=== PATIENT | male | born 1995 | race African-American/Black ===

== ENCOUNTER 2017-09-13 10:46 | Emergency (ER) | payer OTHER ==
[2017-09-13 11:23] VITALS: BP 133/66
--- NOTE | 2017-09-13 11:36 | UC ---
Throat Pain/Nasal Mike HPI - HPI Summary HPI Summary: Throat has felt dry for about one month---patient is concerned about thrush - History of Current Complaint Chief Complaint: UCGeneralIllness Stated Complaint: THROAT COMPLAINT Time Seen by Provider: 09/13/17 11:31 Hx Obtained From: Patient Onset/Duration: Gradual Onset, Lasting Weeks - 4 Severity: Mild Cough: None Associated Signs & Symptoms: Positive: Negative - Allergies/Home Medications Allergies/Adverse Reactions: Allergies Allergy/AdvReac Type Severity Reaction Status Date / Time No Known Allergies Allergy Verified 09/13/17 11:20 Home Medications: Home Medications NK [No Home Medications Reported] 09/13/17 [History Confirmed 09/13/17] PMH/Surg Hx/FS Hx/Imm Hx Previously Healthy: Yes - Surgical History Surgical History: None - Family History Known Family History: Positive: None - Social History Occupation: Student Lives: With Family Alcohol Use: None Substance Use Type: None Smoking Status (MU): Never Smoked Tobacco Review of Systems Constitutional: Negative Skin: Negative Eyes: Negative ENT: Negative, Sore Throat - "dryness" Respiratory: Negative Cardiovascular: Negative Gastrointestinal: Negative Genitourinary: Negative Motor: Negative Neurovascular: Negative Musculoskeletal: Negative Neurological: Negative Psychological: Negative Is Patient Immunocompromised?: No All Other Systems Reviewed And Are Negative: Yes Physical Exam Triage Information Reviewed: Yes Appearance: Well-Appearing, No Pain Distress, Well-Nourished Vital Signs: Initial Vital Signs Temp 98.2 F 09/13/17 11:20 Pulse 59 09/13/17 11:20 Resp 16 09/13/17 11:20 BP 133/66 09/13/17 11:20 Pulse Ox 100 09/13/17 11:20 Vital Signs Reviewed: Yes Eye Exam: Normal Eyes: Positive: Conjunctiva Clear ENT Exam: Normal ENT: Positive: Normal ENT inspection, Hearing grossly normal, Pharynx normal, TMs normal. Negative: Nasal congestion, Nasal drainage, Trismus, Muffled/ hoarse voice Dental Exam: Normal Neck exam: Normal Neck: Positive: Supple, Nontender Respiratory Exam: Normal Respiratory: Positive: Chest non-tender, Lungs clear, Normal breath sounds, No respiratory distress, No accessory muscle use Cardiovascular Exam: Normal Cardiovascular: Positive: RRR, No Murmur, Pulses Normal, Brisk Capillary Refill Musculoskeletal Exam: Normal Musculoskeletal: Positive: Strength Intact, ROM Intact, No Edema Neurological Exam: Normal Neurological: Positive: Alert, Muscle Tone Normal Psychological Exam: Normal Skin Exam: Normal Throat Pain/Nasal Course/Dx - Course Assessment/Plan: try cool mist humidification, saline nasal spary for additional moisture over night follow with [facility] as needed - Differential Dx/Diagnosis Provider Diagnoses: dry nasal and phayngeal mucosa Discharge - Discharge Plan Condition: Stable Disposition: HOME Patient Education Materials: Sodium Chloride (Into the nose), Pharyngitis (ED) Referrals: [facility] [Outside] Additional Instructions: A cool mist humidifier may be helpful with mitigating your symptoms. You can buy these in the pharmacy area of any store
== END 2017-09-13 11:50 | disposition home or self-care (01) ==
LOC: UCCORT 10:46
DX: J02.9 Acute pharyngitis, unspecified (principal)
CPT/HCPCS: 99201; G0463

== ENCOUNTER 2018-08-10 18:08 | Emergency (ER) | payer OTHER ==
[2018-08-10 19:22] VITALS: BP 141/85
[2018-08-10] MEDS ORDERED: Lidocaine 1% MPF* 2 ML VIAL INJ ONE (19:45)
--- NOTE | 2018-08-10 19:47 | UC ---
Skin Complaint HPI - HPI Summary HPI Summary: Patient states that he's had a bump on his left forearm for about the past 4 months. He states that over the past couple of days it looks like it's gotten infected and that it drained a little bit of pus. He denies any hx of MRSA as well as IVDA. - History of Current Complaint Chief Complaint: UCSkin Time Seen by Provider: 08/10/18 19:41 Stated Complaint: INFECTED BUMP ON ARM Hx Obtained From: Patient Onset/Duration: Gradual Onset Timing: Constant Pain Intensity: 8 Aggravating Factor(s): Nothing Alleviating Factor(s): Nothing Associated Signs & Symptoms: Negative: Fever, Rash, Red Streaks, Joint Swelling - Allergy/Home Medications Allergies/Adverse Reactions: Allergies Allergy/AdvReac Type Severity Reaction Status Date / Time No Known Allergies Allergy Verified 08/10/18 19:17 Review of Systems Constitutional: Negative Skin: Other - infection L forearm. Eyes: Negative ENT: Negative Respiratory: Negative Cardiovascular: Negative Gastrointestinal: Negative Genitourinary: Negative Motor: Negative Neurovascular: Negative Musculoskeletal: Negative Neurological: Negative Psychological: Negative Is Patient Immunocompromised?: No All Other Systems Reviewed And Are Negative: Yes PMH/Surg Hx/FS Hx/Imm Hx Previously Healthy: Yes - Surgical History Surgical History: None - Family History Known Family History: Positive: None - Social History Occupation: Student Lives: Dormitory/Roommates Alcohol Use: Occasionally Substance Use Type: None Smoking Status (MU): Never Smoked Tobacco - Immunization History Most Recent Tetanus Shot: UTD Vaccination Up to Date: Yes Physical Exam Triage Information Reviewed: Yes Appearance: Well-Appearing Vital Signs: Initial Vital Signs Temp 98.6 F 08/10/18 19:17 Pulse 69 08/10/18 19:17 Resp 16 08/10/18 19:17 BP 141/85 08/10/18 19:17 Pulse Ox 100 08/10/18 19:17 Vital Signs Reviewed: Yes Eyes: Positive: Conjunctiva Clear ENT: Positive: Normal ENT inspection Neck: Positive: Supple, Nontender, No Lymphadenopathy Respiratory: Positive: Lungs clear, Normal breath sounds Cardiovascular: Positive: RRR, No Murmur Abdomen Description: Positive: Nontender, No Organomegaly, Soft Bowel Sounds: Positive: Present Musculoskeletal: Positive: ROM Intact Neurological: Positive: Alert Psychological: Positive: Age Appropriate Behavior Skin Exam: Normal, Other - 2cm area of induration L proximal forarm with central pointing. No streaking or joint pain. Course/Dx - Course Course Of Treatment: Procedure: Timeout done. Site prepped with Betadine. Local done with 1% lidocaine 1 mL and 30-gauge needle. Superficial stab incision made with the tip of #11 blade. Combination of infection and sebaceous material drained. Gentle exploration with a blunt forcep and then packing placed. Only slight bleeding and patient tolerated well. Sterile technique used. Wound covered with antibiotic ointment and dressing. - Diagnoses Provider Diagnoses: Infected sebaceous cyst left forearm that was opened and drained Discharge - Sign-Out/Discharge Documenting (check all that apply): Patient Departure All imaging exams completed and their final reports reviewed: No Studies - Discharge Plan Condition: Stable Disposition: HOME Patient Education Materials: Cyst (ED), Abscess (ED) Referrals: [facility] GAMINO [[facility]BUSINESS, APPLICATION, OTHER] - 2 Days Additional Instructions: Follow up with the [facility] in 2 days for a wound check and packing removal. Have wound check immediately for any change or worsening. - Billing Disposition and Condition Condition: STABLE Disposition: Home
[2018-08-10] MEDS ORDERED: NS 0.9% 1000 ML* 1,000 ML IV ONE (20:58)
== END 2018-08-10 20:24 | disposition home or self-care (01) ==
LOC: UCCORT 18:08
DX: L72.3 Sebaceous cyst (principal)
CPT/HCPCS: 10060; 87070; 87077; 87186; 87205; 99211; G0463

== ENCOUNTER 2018-08-12 07:42 | Emergency (ER) | payer OTHER ==
[2018-08-12 08:33] VITALS: BP 124/71
--- NOTE | 2018-08-15 10:21 | UC ---
Discharge - Sign-Out/Discharge Documenting (check all that apply): Post-Discharge Follow Up All imaging exams completed and their final reports reviewed: No Studies - Discharge Plan Condition: Stable Disposition: HOME Prescriptions: Sulfamethox/Trimethoprim DS* [Bactrim DS 800/160 TAB*] 1 tab PO BID #20 tab Patient Education Materials: Abscess (ED), Epidermal Inclusion Cysts (ED) Referrals: No Primary Care Phys,NOPCP [Primary Care Provider] - Additional Instructions: BACTRIM BID X 10 DAYS. PACKING REMOVED. HOT SOAKS. FOLLOW-UP ED IF NOT IMPROVING. - Billing Disposition and Condition Condition: STABLE Disposition: Home
--- NOTE | 2018-08-21 17:08 | UC ---
Skin Complaint HPI - HPI Summary HPI Summary: PATIENT SEEN 2 DAYS AGO FOR ABSCESS LEFT FOREARM. I&D WAS PERFORMED AND PACKING PLACED. PATIENT HERE FOR PACKING REMOVAL AND RECHECK OF ABSCESS. PAIN IS IMPROVED. NO FEVER. - History of Current Complaint Chief Complaint: UCSkin Time Seen by Provider: 08/12/18 09:43 Stated Complaint: RECHECK Hx Obtained From: Patient Onset/Duration: Gradual Onset, Lasting Days, Still Present Timing: Constant Onset Severity: Moderate Current Severity: Moderate Pain Intensity: 0 Pain Scale Used: 0-10 Numeric Location: Discrete - LEFT FOREARM Character: Pain, Redness Aggravating Factor(s): Touch Associated Signs & Symptoms: Positive: Tenderness - Allergy/Home Medications Allergies/Adverse Reactions: Allergies Allergy/AdvReac Type Severity Reaction Status Date / Time No Known Allergies Allergy Verified 08/12/18 08:34 Home Medications: Home Medications Acetaminophen 650 mg PO Q6H PRN 08/12/18 [History Confirmed 08/12/18] Review of Systems Constitutional: Negative Skin: Other - HEALING ABSCESS LEFT FOREARM Respiratory: Negative Cardiovascular: Negative Gastrointestinal: Negative All Other Systems Reviewed And Are Negative: Yes PMH/Surg Hx/FS Hx/Imm Hx Previously Healthy: Yes - Surgical History Surgical History: None - Family History Known Family History: Positive: None - Social History Alcohol Use: Occasionally Substance Use Type: None Smoking Status (MU): Never Smoked Tobacco - Immunization History Most Recent Tetanus Shot: UTD Vaccination Up to Date: Yes Physical Exam Triage Information Reviewed: Yes Appearance: Well-Appearing, No Pain Distress, Well-Nourished Vital Signs: Initial Vital Signs Temp 98.7 F 08/12/18 08:05 Pulse 72 08/12/18 08:05 Resp 20 08/12/18 08:05 BP 124/71 08/12/18 08:05 Pulse Ox 99 08/12/18 08:05 Vital Signs Reviewed: Yes Eyes: Positive: Conjunctiva Clear ENT: Positive: Hearing grossly normal Neck: Positive: Supple Respiratory: Positive: No respiratory distress, No accessory muscle use Cardiovascular: Positive: Pulses Normal Abdomen Description: Positive: Soft Musculoskeletal: Positive: No Edema Neurological: Positive: Alert Psychological: Positive: Age Appropriate Behavior Skin: Positive: Other - ABSCESS LEFT FOREARM WITH PACKING IN PLACE. Course/Dx - Course Course Of Treatment: PACKING REMOVED. NO PUS EXPRESSED. BACTRIM, HOT SOAKS, OTC MEDS FOR DISCOMFORT. F/U PCP - Diagnoses Provider Diagnoses: ABSCESS RECHECK Discharge - Sign-Out/Discharge Documenting (check all that apply): Patient Departure All imaging exams completed and their final reports reviewed: No Studies - Discharge Plan Condition: Stable Disposition: HOME Prescriptions: Sulfamethox/Trimethoprim DS* [Bactrim DS 800/160 TAB*] 1 tab PO BID #20 tab Patient Education Materials: Abscess (ED), Epidermal Inclusion Cysts (ED) Referrals: No Primary Care Phys,NOPCP [Primary Care Provider] - Additional Instructions: BACTRIM BID X 10 DAYS. PACKING REMOVED. HOT SOAKS. FOLLOW-UP ED IF NOT IMPROVING. - Billing Disposition and Condition Condition: STABLE Disposition: Home
== END 2018-08-12 10:05 | disposition home or self-care (01) ==
LOC: UCCORT 07:42
DX: L02.414 Cutaneous abscess of left upper limb (principal)
CPT/HCPCS: 99212; G0463